=== PATIENT | female | born 1980 | race Caucasian/White ===

== ENCOUNTER 2020-02-21 06:18 | Day surgery (SDC) | payer OTHER ==
[2020-02-21] MEDS ORDERED: XYLOCAINE 1% HCL 20 ML MDV ONE (06:21)
[2020-02-21] MEDS ORDERED: BUPIVACAINE 0.5% VIAL IJ ONE (06:21)
[2020-02-21] MEDS ORDERED: Lactated Ringers 1,000 ML IV SCH (06:30)
[2020-02-21] MEDS ORDERED: CEFAZOLIN 2 GM-D5W BAG** 2 GM/50 ML ML IV SCH (06:30)
[2020-02-21] MEDS ORDERED: SUBLIMAZE 100 MCG/2 ML ONE ×2 (07:21→09:20)
[2020-02-21] MEDS ORDERED: TORAdol 30 mg Injection ONE (07:21)
[2020-02-21] MEDS ORDERED: Xylocaine-Mpf 2% 5 Ml Vial ONE (07:21)
[2020-02-21] MEDS ORDERED: Decadron 4 MG INJ ONE (07:21)
[2020-02-21] MEDS ORDERED: Versed 2 MG/2 ML Injection ONE (07:21)
[2020-02-21] MEDS ORDERED: Zofran 4 MG/2 ML VIAL ONE (07:21)
[2020-02-21] MEDS ORDERED: DIPRIVAN 200 MG/20 ML IV ONE (07:21)
[2020-02-21] MEDS ORDERED: MORPHINE SULFATE 10 MG/ML ONE (10:02)
[2020-02-21 11:08] VITALS: O2SAT 98
[2020-02-21 11:40] VITALS: BP 115/59; PULSE 83
--- NOTE | 2020-02-24 11:16 | OP ---
SURGERY DATE/TIME: 02/21/2020 0805 PREOPERATIVE DIAGNOSIS: Plantar lipoma and tarsal tunnel of the right foot. POSTOPERATIVE DIAGNOSIS: Plantar lipoma and tarsal tunnel of the right foot. PROCEDURE: Decompression of tibial nerve, medial and lateral plantar nerves at the right ankle and excision of lipoma to plantar aspect of the right foot. SURGEON: Isaias Bishop DPM. PRICE LISTER: None. ANESTHESIA: General plus local. ANTIBIOTIC: 1 gm Ancef preoperatively. HEMOSTASIS: Pneumatic thigh tourniquet set to 350 mm of Mercury for 60 minutes. ESTIMATED BLOOD LOSS: Less than 5 cc. MATERIALS: 3-0 Nylon, 2-0 Vicryl. INJECTABLES: Preoperative none. Postoperatively 30 cc of 1:1 mixture of 0.5% Marcaine plain and 1% lidocaine plain in a 1:1 mixture. FINDINGS: Nonencapsulated plantar lipoma excised from the plantar aspect of the right foot abutting the abductor hallucis and flexor digitorum longus muscle bellies. Adequate release of the tarsal tunnel. Medial and lateral plantar nerves. PATHOLOGY: Nonencapsulated lipoma. COMPLICATIONS: None. DESCRIPTION OF PROCEDURE AND FINDINGS: Following satisfactory preoperative evaluation, the patient is brought into the OR and placed on the OR table in the supine position. General anesthesia was then administered by the anesthesia team following sedation, well-padded pneumatic thigh tourniquet was placed around the right thigh. The left foot then was prepped and draped in typical sterile fashion. Esmarch was utilized to exsanguinate the right lower extremity and the tourniquet was inflated to 350 mm of Mercury. At this time attention was directed to the posterior aspect of the right medial malleolus where a 4 cm longitudinal incision was made proximal to distal through the skin using a 10 blade. The distal end of the incision was then extended 4 cm distally along the abductor hallucis muscle belly and then the incision was carefully deepened through subcutaneous tissue by sharp and blunt dissection taking care to protect all neurovascular structures. In order to do so, the fascia was first found and the vein that ran with the posterior tibial tendon was identified and decompressed. All bleeders were cauterized using bipolar cautery making sure not to cauterize any of the tendon as needed or a hand tie with 4-0 Vicryl in the case of larger veins and its neurovascular bundle was noted to be posterior displaced, decompressed by a large lipoma at the plantar aspect of the right foot. Once removed the total mass was measured to be approximately 2 x 1 x 1 cm. The lipoma was noted to have multiple lobes extending from the posterior aspect of the medial malleolus down the tarsal tunnel and the abductor hallucis muscle belly where it applied compression to the medial and plantar nerves as it entered their respective tunnels. The tibial nerve was then carefully freed from its constricture from proximal to distal and then followed by the medial and lateral plantar nerves. In between these two nerves the septum was identified and was retracted out in order to prevent any further compression. The lateral and medial plantar nerves were then fully freed from constricture from both proximal to distal with their tunnels beneath the abductor hallucis muscle belly. Medial calcaneal nerve was identified and noted to be free of constricture. Decompression of the medial and lateral plantar nerves, medial calcaneal nerve and the tibial nerve were noted to be complete at this time. The area was then flushed with sterile saline. The subcutaneous tissue was then reapproximated utilizing a 2-0 Vicryl making sure not to repair the distal extent of the ligament. The skin was coapted utilizing 3-0 Nylon suture. A postoperative injection was given of 30 cc of 0.5% Marcaine plain and 1% lidocaine plain in a 1:1 mixture. The tourniquet was then deflated. Total tourniquet time was approximately 60 minutes. Good dorsalis pedis and posterior tibial pulses were noted immediately following the surgery with capillary refill time. At this time consisting of beta soaked Adaptic, 4x4, gauze and Kerlix were applied to the right lower extremity followed by compressive dressing of Webril and YOBANI applied to the right foot and lower extremity. The patient tolerated the procedure well and the patient transported to the recovery unit with vital signs stable and vascular status intact. The patient was sent with the following orders: 1) Nonweight bearing to the right lower extremity. 2) Keep dressing clean, dry and intact until postoperative visit #1. 3) Rest, ice and elevation of right lower extremity. 4) Prescriptions written for pain control, deep venous thrombosis prophylaxis and infection prophylaxis to be taken as prescribed. 5) The patient will be discharged per anesthesia.
== END 2020-02-21 11:56 | disposition home or self-care (01) ==
LOC: SDC 06:18
PROVIDERS: ATTEND Podiatrist Foot & Ankle Surgery
DX: D17.39 Benign lipomatous neoplasm of skin and subcutaneous tissue of other sites (principal); G57.51 Tarsal tunnel syndrome, right lower limb; M79.671 Pain in right foot
CPT/HCPCS: 28035; 28041; J0690; J1100; J1885; J2250; J2270; J2405; J2704; J3010

== ENCOUNTER 2020-12-29 19:37 | Emergency (ER) | payer OTHER ==
--- NOTE | 2020-12-29 19:41 | ERPHSYRPT ---
- History of Present Illness Time Seen by Provider: 12/29/20 19:41 Historian: patient Physician History: This is an obese 40-year-old white female patient who presents with left upper quadrant to left mid quadrant abdominal pain. It is worsened throughout the day. Patient does not have significant left flank pain but does feel little pressure in the area. She did not suffer any trauma. She has no chest pain she has no shortness of breath. She has not had any nausea vomiting or diarrhea symptoms. Pain began at approximately 545 this morning. Timing/Duration: today Quality: aching, cramping Abdominal Pain Onset Location: LUQ (To left mid quadrant) Pain Radiation: no radiation Severity of Pain-Max: moderate Severity of Pain-Current: moderate Associated Symptoms: No chest pain, No nausea, No shortness of breath, No vomiting Previous symptoms: no prior history Allergies/Adverse Reactions: hydrocodone bitartrate [From Vicodin] Adverse Reaction (Mild, Verified 12/29/20 19:48) Nausea and Vomiting Home Medications: Benazepril HCl [Lotensin] 20 mg PO DAILY 02/10/20 [History] Triamterene/Hydrochlorothiazid [Triamterene-Hctz 37.5-25 mg Tb] 1 each PO DAILY 02/10/20 [History] Amlodipine Besylate 5 mg [Norvasc 5 mg] 5 mg PO DAILY 12/29/20 [History] Hx Tetanus, Diphtheria Vaccination/Date Given: Yes Hx Influenza Vaccination/Date Given: No Hx Pneumococcal Vaccination/Date Given: No Travel Risk - International Travel Have you traveled outside of the country in past 3 weeks: No - Coronavirus Screening Are you exhibiting any of the following symptoms?: No Close contact with a COVID-19 positive Pt in past 14-21 Days: No - Review of Systems Constitutional: No Symptoms Eyes: No Symptoms Ears, Nose, & Throat: No Symptoms Respiratory: No Symptoms Cardiac: No Symptoms Abdominal/Gastrointestinal: Abdominal Pain Genitourinary Symptoms: No Symptoms Musculoskeletal: No Symptoms Skin: No Symptoms Neurological: No Symptoms Psychological: No Symptoms Endocrine: No Symptoms Hematologic/Lymphatic: No Symptoms Immunological/Allergic: No Symptoms All Other Systems: Reviewed and Negative - Past Medical History Pertinent Past Medical History: Yes Neurological History: No Pertinent History ENT History: No Pertinent History Cardiac History: Hypertension Respiratory History: No Pertinent History Endocrine Medical History: No Pertinent History Musculoskeletal History: Fractures, Other GI Medical History: No Pertinent History History: No Pertinent History Psycho-Social History: No Pertinent History Female Reproductive Disorders: No Pertinent History Other Medical History: R ankle fx and surgery 2012. Hysterectomy - Past Surgical History Past Surgical History: Yes Neuro Surgical History: No Pertinent History Cardiac: No Pertinent History Respiratory: No Pertinent History Gastrointestinal: No Pertinent History Genitourinary: No Pertinent History Musculoskeletal: Orthopedic Surgery Female Surgical History: Hysterectomy, Tubal Ligation Other Surgical History: ankle surgery - Social History Smoking Status: Former smoker How long have you smoked: 6 YRS Exposure to second hand smoke: Yes Drug Use: none - Nursing Vital Signs Nursing Vital Signs: Initial Vital Signs Temperature 98.4 F 12/29/20 19:38 Pulse Rate 101 H 12/29/20 19:38 Respiratory Rate 20 12/29/20 19:38 Blood Pressure 130/83 12/29/20 19:38 O2 Sat by Pulse Oximetry 99 12/29/20 19:38 Pain Scale Pain Intensity 8 - Physical Exam General Appearance: no apparent distress, alert, anxiety, obese Eye Exam: PERRL/EOMI, eyes nml inspection Ears, Nose, Throat Exam: normal ENT inspection, moist mucous membranes Neck Exam: normal inspection, non-tender, supple, full range of motion Respiratory Exam: normal breath sounds, lungs clear, airway intact, No chest tenderness, No respiratory distress Cardiovascular Exam: regular rate/rhythm, normal heart sounds, normal peripheral pulses Gastrointestinal/Abdomen Exam: soft, normal bowel sounds, tenderness (Left upper quadrant to left mid quadrant), guarding, No rebound Pelvic Exam: not done Rectal Exam: not done Back Exam: normal inspection, normal range of motion, CVA tenderness Extremity Exam: normal inspection, normal range of motion, pelvis stable Neurologic Exam: alert, oriented x 3, cooperative, is support analyst II-XII nml as tested, normal mood/affect, nml cerebellar function, nml station & gait, sensation nml Skin Exam: normal color, warm, dry Lymphatic Exam: No adenopathy SpO2 Interpretation: normal O2 Delivery: Room Air - Course Nursing assessment & vital signs reviewed: Yes Ordered Tests: Active Orders 24 hr Category Date Time Status IV Insertion STAT Care 12/29/20 20:06 Active ABDOMEN AND PELVIS W/0 CONTRAS [CT] Stat Exams 12/29/20 20:15 Taken AMYLASE Stat Lab 12/29/20 20:00 Completed CBC W DIFF Stat Lab 12/29/20 20:00 Completed CMP Stat Lab 12/29/20 20:00 Completed LIPASE Stat Lab 12/29/20 20:00 Completed Lactic Acid Stat Lab 12/29/20 20:06 Completed UA W/RFX UR CULTURE Stat Lab 12/29/20 20:00 Completed Medication Summary Discontinued Medications Generic Name Dose Route Start Last Admin Trade Name Freq PRN Reason Stop Dose Admin Sodium Chloride 1,000 mls @ 999 mls/hr 12/29/20 20:06 12/29/20 20:28 Sodium Chloride 0.9% 1000 Ml IV 12/29/20 21:06 999 mls/hr .Q1H1M STA Administration Sodium Chloride Confirm 12/29/20 20:24 Sodium Chloride 0.9% 1000 Ml Administered 12/29/20 20:25 Dose 1,000 mls @ ud .ROUTE .STK-MED ONE Ondansetron HCl 4 mg 12/29/20 20:06 12/29/20 20:27 Ondansetron Hcl 4 Mg/2 Ml Vial IV 12/29/20 20:07 4 mg STAT ONE Administration Ondansetron HCl Confirm 12/29/20 20:24 Ondansetron Hcl 4 Mg/2 Ml Vial Administered 12/29/20 20:25 Dose 4 mg .ROUTE .STK-MED ONE Lab/Rad Data: Laboratory Result Diagrams 12/29/20 20:00 12/29/20 20:00 Laboratory Results 12/29/20 12/29/20 12/29/20 Range/Units 20:06 20:00 20:00 WBC 11.7 H (4.0-10.5) K/mm3 RBC 3.91 L (4.1-5.4) M/mm3 Hgb 11.1 L (12.0-16.0) gm/dl Hct 34.4 L (35-47) % MCV 88.0 (78-100) fl MCH 28.4 (26-32) pg MCHC 32.3 (32-36) g/dl RDW 13.5 (11.5-14.0) % Plt Count 285 (150-450) K/mm3 MPV 9.7 (7.5-11.0) fl Gran % 75.2 H (36.0-66.0) % Eos # (Auto) 0.07 (0-0.5) Absolute Lymphs (auto) 1.78 (1.0-4.6) Absolute Monos (auto) 1.01 (0.0-1.3) Lymphocytes % 15.3 L (24.0-44.0) % Monocytes % 8.7 (0.0-12.0) % Eosinophils % 0.6 (0.00-5.0) % Basophils % 0.2 (0.0-0.4) % Absolute Granulocytes 8.77 H (1.4-6.9) Basophils # 0.02 (0-0.4) Sodium 137 (137-145) mmol/L Potassium 3.8 (3.5-5.1) mmol/L Chloride 99 (98-107) mmol/L Carbon Dioxide 28 (22-30) mmol/L Anion Gap 12.6 (5-15) MEQ/L BUN 15 (7-17) mg/dL Creatinine 0.72 (0.52-1.04) mg/dL Estimated GFR > 60.0 ML/MIN Glucose 77 (74-106) mg/dL Lactic Acid 1.0 (0.4-2.0) Calcium 8.9 (8.4-10.2) mg/dL Total Bilirubin 0.30 (0.2-1.3) mg/dL AST 27 (14-36) U/L ALT 18 (0-35) U/L Alkaline Phosphatase 106 (38-126) U/L Serum Total Protein 7.4 (6.3-8.2) g/dL Albumin 4.0 (3.5-5.0) g/dL Amylase 48 (30-110) U/L Lipase 83 (23-300) U/L Urine Color (YELLOW) Urine Appearance (CLEAR) Urine pH (5-6) Ur Specific [place] (1.005-1.025) Urine Protein (Negative) Urine Ketones (NEGATIVE) Urine Blood (0-5) Issac/ul Urine Nitrite (NEGATIVE) Urine Bilirubin (NEGATIVE) Urine Urobilinogen (0-1) mg/dL Ur Leukocyte Esterase (NEGATIVE) Urine WBC (Auto) (0-5) /HPF Urine RBC (Auto) (0-2) /HPF U Epithel Cells (Auto) (FEW) /HPF Urine Bacteria (Auto) (NEGATIVE) /HPF Urine Mucus (Auto) (NEGATIVE) /HPF Urine Culture Reflexed (NO) Urine Glucose (NEGATIVE) mg/dL 12/29/20 Range/Units 20:00 WBC (4.0-10.5) K/mm3 RBC (4.1-5.4) M/mm3 Hgb (12.0-16.0) gm/dl Hct (35-47) % MCV (78-100) fl MCH (26-32) pg MCHC (32-36) g/dl RDW (11.5-14.0) % Plt Count (150-450) K/mm3 MPV (7.5-11.0) fl Gran % (36.0-66.0) % Eos # (Auto) (0-0.5) Absolute Lymphs (auto) (1.0-4.6) Absolute Monos (auto) (0.0-1.3) Lymphocytes % (24.0-44.0) % Monocytes % (0.0-12.0) % Eosinophils % (0.00-5.0) % Basophils % (0.0-0.4) % Absolute Granulocytes (1.4-6.9) Basophils # (0-0.4) Sodium (137-145) mmol/L Potassium (3.5-5.1) mmol/L Chloride (98-107) mmol/L Carbon Dioxide (22-30) mmol/L Anion Gap (5-15) MEQ/L BUN (7-17) mg/dL Creatinine (0.52-1.04) mg/dL Estimated GFR ML/MIN Glucose (74-106) mg/dL Lactic Acid (0.4-2.0) Calcium (8.4-10.2) mg/dL Total Bilirubin (0.2-1.3) mg/dL AST (14-36) U/L ALT (0-35) U/L Alkaline Phosphatase (38-126) U/L Serum Total Protein (6.3-8.2) g/dL Albumin (3.5-5.0) g/dL Amylase (30-110) U/L Lipase (23-300) U/L Urine Color YELLOW (YELLOW) Urine Appearance SLIGHTLY CLOUDY (CLEAR) Urine pH 6.0 (5-6) Ur Specific [place] 1.025 (1.005-1.025) Urine Protein NEGATIVE (Negative) Urine Ketones NEGATIVE (NEGATIVE) Urine Blood NEGATIVE (0-5) Issac/ul Urine Nitrite NEGATIVE (NEGATIVE) Urine Bilirubin NEGATIVE (NEGATIVE) Urine Urobilinogen NEGATIVE (0-1) mg/dL Ur Leukocyte Esterase NEGATIVE (NEGATIVE) Urine WBC (Auto) 0-2 (0-5) /HPF Urine RBC (Auto) NONE (0-2) /HPF U Epithel Cells (Auto) RARE (FEW) /HPF Urine Bacteria (Auto) NONE (NEGATIVE) /HPF Urine Mucus (Auto) SLIGHT (NEGATIVE) /HPF Urine Culture Reflexed NO (NO) Urine Glucose NEGATIVE (NEGATIVE) mg/dL - Progress Progress: improved, pain not gone completely, re-examined Progress Note: 12/29/20 21:17 CAT scan of the abdomen pelvis without contrast shows left lower quadrant bilobed cystic mass measuring 1.3 x 4.9 x 7.2 cm. Possibly ovarian in etiology. The remainder of the abdominal pelvic CT is negative. Counseled pt/family regarding: lab results, diagnosis, need for follow-up, rad results - Departure Departure Disposition: Home Clinical Impression: Ovarian cystic mass Condition: Stable Critical Care Time: No Referrals: FERDINAND HEIN [Primary Care Provider] - Follow up/PCP as directed Additional Instructions: Follow-up with your primary care physician and/or market analyst for further management. Use Tylenol and ibuprofen for pain control.
[2020-12-29] MEDS ORDERED: Sodium Chloride 0.9% 1000 ML 1,000 ML IV STA (20:06)
[2020-12-29] MEDS ORDERED: Zofran 4 MG/2 ML VIAL IV ONE (20:06)
[2020-12-29 20:15] LABS: Appearance SLIGHTLY CLOUDY (CLEAR); Bilirubin NEGATIVE (NEGATIVE); Blood NEGATIVE Ery/ul (0-5); Epithelial Cells RARE /HPF (FEW); Glucose NEGATIVE (NEGATIVE); Ketones NEGATIVE (NEGATIVE); Leukocyte Esterase NEGATIVE (NEGATIVE); Mucus SLIGHT /HPF (NEGATIVE); Nitrite NEGATIVE (NEGATIVE); Protein,Urine Dip NEGATIVE (Negative); Specific Gravity 1.025 (1.005-1.025); Urobilinogen NEGATIVE mg/dL (0-1); WBC 0-2 /HPF (0-5)
[2020-12-29 20:19] LABS: ALKALINE PHOSPHATASE 106 U/L (38-126); AMYLASE 48 U/L (30-110); ANION GAP 12.6 MEQ/L (5-15); Absolute Neutrophil Ct (ANC) 8.77 (1.4-6.9); BASOPHIL % 0.2 % (0.0-0.4); BLOOD UREA NITROGEN 15 mg/dL (7-17); Basophil (Absolute #) 0.02 (0-0.4); CHLORIDE 99 mmol/L (98-107); Calcium 8.9 mg/dL (8.4-10.2); Carbon Dioxide 28 mmol/L (22-30); Creatinine 1 0.72 mg/dL (0.52-1.04); EST GLOMERULAR FILTRATION RATE > 60.0 ML/MIN; Eosinophil % 0.6 % (0.00-5.0); Eosinophil (Absolute #) 0.07 (0-0.5); Glucose 77 mg/dL (74-106); Hematocrit 34.4 % (35-47); Hemoglobin 11.1 gm/dl (12.0-16.0); LIPASE 83 U/L (23-300); Lymphocyte (Absolute #) 1.78 (1.0-4.6); Lymphocytes % 15.3 % (24.0-44.0); Mean Corpuscular Hemoglobin 28.4 pg (26-32); Mean Corpuscular Hgb Concent. 32.3 g/dl (32-36); Mean Platelet Volume 9.7 fl (7.5-11.0); Monocyte (Absolute #) 1.01 (0.0-1.3); Monocytes % 8.7 % (0.0-12.0); Neutrophil % 75.2 % (36.0-66.0); Platelet Count 285 K/mm3 (150-450); Potassium 3.8 mmol/L (3.5-5.1); Red Blood Count 3.91 M/mm3 (4.1-5.4); Red Cell Distribution Width 13.5 % (11.5-14.0); SGOT/AST 27 U/L (14-36); SGPT/ALT 18 U/L (0-35); SODIUM 137 mmol/L (137-145); Total Protein 7.4 g/dL (6.3-8.2); White Blood Count 11.7 K/mm3 (4.0-10.5)
[2020-12-29] MEDS ORDERED: Sodium Chloride 0.9% 1000 ML 1,000 ML ONE (20:24)
[2020-12-29] MEDS ORDERED: Zofran 4 MG/2 ML VIAL ONE (20:24)
--- NOTE | 2020-12-30 08:41 | XRAY ---
Indication: Left upper quadrant pain. Multiple contiguous axial images obtained through the abdomen and pelvis without contrast. Comparison: None Lung bases are clear. Heart not enlarged. Stomach mildly distended with food/fluid. Noncontrasted stomach and bowel loops appear nonobstructed with normal appendix. Uterus surgically absent. Left lower quadrant demonstrates a bilobed noncalcified cystic mass measuring at least 4.3 x 4.9 x 7.2 cm possibly ovarian in etiology. No free fluid/air. Remaining liver, gallbladder, pancreas, spleen, adrenal glands, kidneys, ureters, bladder, and aorta appear unremarkable for noncontrast exam. Osseous structures intact with incidental bilateral L5 spondylolysis without spondylolisthesis. Impression: 1. Left lower quadrant bilobed cystic mass as detailed, possibly ovarian in etiology. Pelvic sonogram may yield further information. 2. Incidental L5 spondylolysis without listhesis. 3. Remaining CT abdomen/pelvis without contrast exam is negative.
== END 2020-12-29 21:43 | disposition home or self-care (01) ==
LOC: ED 19:37
DX: N83.202 Unspecified ovarian cyst, left side (principal); I10 Essential (primary) hypertension
CPT/HCPCS: 36000; 36415; 74176; 80053; 81001; 82150; 83605; 83690; 85025; 96374; 99284; J2405

== ENCOUNTER 2021-09-24 21:01 | Emergency (ER) | payer OTHER ==
[2021-09-24 21:22] VITALS: O2SAT 99
[2021-09-24] MEDS ORDERED: BENADRYL 25 MG CAPSULE PO ONE (21:24)
[2021-09-24] MEDS ORDERED: ACYCLOVIR PO ONE (21:28)
[2021-09-24] MEDS ORDERED: BENADRYL 25 MG CAPSULE ONE (21:32)
[2021-09-24] MEDS ORDERED: ACYCLOVIR ONE (21:32)
--- NOTE | 2021-09-24 21:35 | ERPHSYRPT ---
- History of Present Illness Time Seen by Provider: 09/24/21 21:20 Source: patient Exam Limitations: no limitations Patient Subjective Stated Complaint: pt states she has a rash on her rt side. states pain feels like its under her skin and is tender to touch. Triage Nursing Assessment: pt alert and oriented, answers questions approp. pt ambulatory with steady gait noted. rash to rt lower back extending around rt side. rash with some scabbing and some small blisters. Physician History: This is an obese 40-year-old white female who is a patient of Dr. Mendoza. She has a history of hypertension and has had bilateral tubal ligation and hysterectomy in the past. She presents with 2-day history of right flank rash. The rash came after a couple of days of sharp burning pain in the area. There is been some blistering present as well. The presents in a dermatomal distribution. Patient does not want any narcotic medications. She states that she will use naproxen and Tylenol at home. She has not had a fever. She has no cough. She has no nausea vomiting or diarrhea. Timing/Duration: day(s) (2) Quality: burning, itchy, painful Severity: mild (To moderate) Location: other (Right flank coursing in a dermatomal fashion anteriorly to the abdominal wall) Possible Causes: other (Shingles) Associated Symptoms: blisters, change in skin texture, rash Allergies/Adverse Reactions: hydrocodone bitartrate [From Vicodin] Adverse Reaction (Mild, Verified 09/24/21 21:23) Nausea and Vomiting Home Medications: Benazepril HCl [Lotensin] 20 mg PO DAILY 02/10/20 [History] Triamterene/Hydrochlorothiazid [Triamterene-Hctz 37.5-25 mg Tb] 1 each PO DAILY 02/10/20 [History] Amlodipine Besylate 5 mg [Norvasc 5 mg] 5 mg PO DAILY 12/29/20 [History] Hx Tetanus, Diphtheria Vaccination/Date Given: Yes Hx Influenza Vaccination/Date Given: No Hx Pneumococcal Vaccination/Date Given: No Immunizations Up to Date: Yes Travel Risk - International Travel Have you traveled outside of the country in past 3 weeks: No - Coronavirus Screening Are you exhibiting any of the following symptoms?: No Close contact with a COVID-19 positive Pt in past 14-21 Days: No - Vaccine Status Have you recieved a Covid-19 vaccination: Yes 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: [employer] - Vaccination Dates Date of 2cond Vaccination (if applicable): 2020 - Review of Systems Constitutional: No Symptoms Eyes: No Symptoms Ears, Nose, & Throat: No Symptoms Respiratory: No Symptoms Cardiac: No Symptoms Abdominal/Gastrointestinal: No Symptoms Genitourinary Symptoms: No Symptoms Musculoskeletal: No Symptoms Skin: Rash (Raised rash with blistering and a dermatomal distribution.) Neurological: No Symptoms Psychological: No Symptoms Endocrine: No Symptoms Hematologic/Lymphatic: No Symptoms Immunological/Allergic: No Symptoms All Other Systems: Reviewed and Negative - Past Medical History Pertinent Past Medical History: Yes Neurological History: No Pertinent History ENT History: No Pertinent History Cardiac History: Hypertension Respiratory History: No Pertinent History Endocrine Medical History: No Pertinent History Musculoskeletal History: Fractures, Other GI Medical History: No Pertinent History History: No Pertinent History Psycho-Social History: No Pertinent History Female Reproductive Disorders: No Pertinent History, Fibroids Other Medical History: R ankle fx and surgery 2012. Hysterectomy - Past Surgical History Past Surgical History: Yes Neuro Surgical History: No Pertinent History Cardiac: No Pertinent History Respiratory: No Pertinent History Gastrointestinal: No Pertinent History Genitourinary: No Pertinent History Musculoskeletal: Orthopedic Surgery Female Surgical History: Hysterectomy, Tubal Ligation Other Surgical History: ankle surgery - Social History Smoking Status: Former smoker How long have you smoked: 6 YRS Exposure to second hand smoke: No Drug Use: none Patient Lives Alone: No - Female History Hx Last Menstrual Period: hyster Hx Now: No - Nursing Vital Signs Nursing Vital Signs: Initial Vital Signs Temperature 98.0 F 09/24/21 21:07 Pulse Rate 95 H 09/24/21 21:07 Respiratory Rate 16 09/24/21 21:07 Blood Pressure 159/99 09/24/21 21:07 O2 Sat by Pulse Oximetry 99 09/24/21 21:07 Pain Scale Pain Intensity 6 - Physical Exam General Appearance: no apparent distress, alert, anxiety, obese Eye Exam: PERRL/EOMI, eyes nml inspection Ears, Nose, Throat Exam: normal ENT inspection, moist mucous membranes Neck Exam: normal inspection, non-tender, supple, full range of motion Respiratory Exam: lungs clear, airway intact, No chest tenderness, No respiratory distress Gastrointestinal/Abdomen Exam: No tenderness Pelvic Exam: not done Back Exam: rash (Dermatomal distribution raised rash with blistering present. Come from midline flank region travels right laterally to the right anterior abdominal wall.) Extremity Exam: normal inspection, normal range of motion, pelvis stable Neurologic Exam: alert, oriented x 3, cooperative, patient services representative II-XII nml as tested, normal mood/affect, nml cerebellar function, nml station & gait, sensation nml Skin Exam: rash (See above) Lymphatic Exam: No adenopathy SpO2 Interpretation: normal SpO2: 99 O2 Delivery: Room Air - Course Nursing assessment & vital signs reviewed: Yes - Progress Progress: unchanged Counseled pt/family regarding: diagnosis, need for follow-up - Departure Departure Disposition: Home Clinical Impression: Shingles rash Condition: Stable Critical Care Time: No Referrals: FERDINAND MENDOZA [Primary Care Provider] - Follow up/PCP as directed Additional Instructions: Keep the site clean daily with soap and water. Use Tylenol and naproxen as discussed. May add [id number] Benadryl for relief of itching. Take your antiviral medicine as prescribed. Prescriptions: Valacyclovir HCl [Valacyclovir] 1,000 mg PO TID #21 tablet
[2021-09-24 21:48] VITALS: BP 152/93; PULSE 88
== END 2021-09-24 21:48 | disposition home or self-care (01) ==
LOC: ED 21:01
DX: B02.8 Zoster with other complications (principal); R21 Rash and other nonspecific skin eruption; I10 Essential (primary) hypertension; Z79.899 Other long term (current) drug therapy
CPT/HCPCS: 99281; A9270-GY

== ENCOUNTER 2024-11-24 15:43 | Emergency (ER) | payer OTHER ==
[2024-11-24 16:06] VITALS: PULSE 83; TEMP 98.7; O2SAT 95
--- NOTE | 2024-11-24 16:14 | ERPHSYRPT ---
- History of Present Illness Time Seen by Provider: 11/24/24 16:14 Source: patient Exam Limitations: no limitations Patient Subjective Stated Complaint: pt c/o of right wrist pain since Monday evening Triage Nursing Assessment: Pt brought self to the ER, hypertensive, rates pain as 4/10, pulses normal, skin n/w/d, denies injury, reports pain being the same with the brace on as without, denies any other issues Physician History: Patient presents with ongoing right wrist pain since Monday. She placed in a brace that she had at home and has not improved since that time. She is not taking any [id number] medications. No injury reported. No previous issues over the area. Most of her pain is located over the hook of the hamate hamate/TFCC area. She denies numbness or tingling. Occurred: days ago (2) Quality: constant, sharpness Severity of Pain-Max: moderate Severity of Pain-Current: moderate Modifying Factors: Worsens With: movement Allergies/Adverse Reactions: hydrocodone bitartrate [From Vicodin] Adverse Reaction (Mild, Verified 11/24/24 16:06) Nausea and Vomiting codeine Adverse Reaction (Verified 11/24/24 16:06) Nausea and Vomiting Home Medications: Benazepril HCl [Lotensin] 20 mg PO DAILY 02/10/20 [History] Triamterene/Hydrochlorothiazid [Triamterene-Hctz 37.5-25 mg Tb] 1 each PO DAILY 02/10/20 [History] Amlodipine Besylate 5 mg [Norvasc 5 mg] 5 mg PO DAILY 12/29/20 [History] Hx Tetanus, Diphtheria Vaccination/Date Given: Yes Hx Influenza Vaccination/Date Given: No Hx Pneumococcal Vaccination/Date Given: No Travel Risk - International Travel Have you traveled outside of the country in past 3 weeks: No - Emerging Infectious Disease Are you exhibiting symptoms associated with any current EIDs: No - Review of Systems All Other Systems: Reviewed and Negative - Past Medical History Pertinent Past Medical History: Yes Neurological History: No Pertinent History ENT History: No Pertinent History Cardiac History: Hypertension Respiratory History: No Pertinent History Endocrine Medical History: No Pertinent History Musculoskeletal History: Fractures, Other GI Medical History: No Pertinent History History: No Pertinent History Psycho-Social History: No Pertinent History Female Reproductive Disorders: No Pertinent History, Fibroids Other Medical History: R ankle fx and surgery 2013. Hysterectomy - Past Surgical History Past Surgical History: Yes Neuro Surgical History: No Pertinent History Cardiac: No Pertinent History Respiratory: No Pertinent History Gastrointestinal: No Pertinent History Genitourinary: No Pertinent History Musculoskeletal: Orthopedic Surgery Female Surgical History: Hysterectomy, Tubal Ligation Other Surgical History: ankle surgery - Female History Hx Now: No (hysterectomy) - Social History Smoking Status: Former smoker How long have you smoked: 6 YRS Exposure to second hand smoke: No Drug Use: none - Social Determinants of Health Will the patient participate in the screening: Yes Do you worry about a steady place to live?: No Do you have any problems with any of the following?: No known problems In the past 12 months,have you had to go without utilities?: No Transportation Issues: No Has anyone in your support network made you feel unsafe?: No Have you or anyone in your house had to go w/o enough food: No - Nursing Vital Signs Nursing Vital Signs: Initial Vital Signs Temperature 98.7 F 11/24/24 16:01 Pulse Rate 83 11/24/24 16:01 Blood Pressure 144/83 11/24/24 16:01 O2 Sat by Pulse Oximetry 95 11/24/24 16:01 Pain Scale Pain Intensity 4 - Physical Exam General Appearance: no apparent distress Wrist Exam: normal inspection, no evidence of injury, normal ROM, bone tenderness (hook hammate), pain, soft tissue tenderness, No deformity, No ecchymosis, No swelling SpO2: 95 - Course Nursing assessment & vital signs reviewed: Yes Ordered Tests: Active Orders 24 hr Category Date Time Status WRIST (MIN 3 VIEWS) Stat Exams 11/24/24 16:30 Taken Medication Summary Discontinued Medications Generic Name Dose Route Start Last Admin Trade Name Freq PRN Reason Stop Dose Admin Ketorolac Tromethamine 10 mg 11/24/24 16:19 11/24/24 16:40 Ketorolac Tromethamine 10 Mg Tablet PO 11/24/24 16:20 10 mg STAT ONE Administration - Progress Progress: improved Progress Note: Patient presents with right wrist pain that has not responded to immobilization. No injury reported. She has pain over the hook of the hamate and TFCC area. X-ray of the right wrist ordered to evaluate for hamate fracture. Ketorolac 10 mg tablet given for discomfort. Recommend use of wrist lacer. Home exercise program given to patient to work on range of motion and strengthening of her wrist. Recommend follow-up with Ortho for further evaluation and treatment. Patient will likely need MRI of no improvement with conservative measures. 11/24/24 16:47 XR shows hook of hammate fx, placed in ulnar gutter splint. Advise ortho f/u for definitive casting. Toradol tablets sent to pharmacy. Counseled pt/family regarding: diagnosis, need for follow-up, rad results Medical Desision Making - Diagnostic Testing Diagnostic test were ordered, analyzed, and reviewed by me: Yes Radiological Interpretation: Interpreted by me - Risk of complications The pt has a mod risk of morbidity or mortality based on: Need for prescription drug management - Departure Departure Disposition: Home Clinical Impression: Fracture of hook process of hamate of right wrist Condition: Stable Critical Care Time: No Referrals: FERDINAND HEIN [Primary Care Provider, [facility]] - Follow up/PCP as directed Instructions: Hand Fracture ED Prescriptions: Ketorolac Trometh 10 mg Tab [TORAdol 10 MG TABLET] 10 mg PO TID PRN 5 Days #15 tablet PRN Reason: Pain Outpatient Orders: Ortho Referral Time Frame: 1 Day, Facility: [facility], Location: [facility]THO CLINIC
[2024-11-24] MEDS: TORAdol 10 MG TABLET PO ONE (16:40)
[2024-11-24 16:54] VITALS: BP 124/88
--- NOTE | 2024-11-24 22:51 | XRAY ---
Indication: Pain. Comparison: February 28, 2019 3 view right wrist demonstrates new 3 x 5 mm ossification anterior to triquetrum/pisiform concerning for fracture fragment. No other bony, articular, or soft tissue abnormalities.
== END 2024-11-24 16:57 | disposition home or self-care (01) ==
LOC: ED 15:43
DX: S62.151A Displaced fracture of hook process of hamate [unciform] bone, right wrist, initial encounter for closed fracture (principal); I10 Essential (primary) hypertension; Z79.899 Other long term (current) drug therapy